=== PATIENT | female | born 1945 | race African-American/Black ===

== ENCOUNTER 2022-02-15 02:48 | Inpatient (IN) | payer MEDICARE, MEDICAID ==
[~2022-02-15] VITALS: Ht 170.2 cm; Wt 135.4 kg
[2022-02-15] VITALS (32 sets, daily range): BP systolic 94–169; BP diastolic 39–131
[2022-02-15] MEDS ORDERED: ALBUTEROL (0.083%) 2.5MG/3ML NEB HHN STA (02:50)
[2022-02-15] MEDS ORDERED: METHYLPREDNISOLONE SOD SUCC 125 MG/2 ML VIAL IV STA (02:50)
[2022-02-15] MEDS ORDERED: IPRATROPIUM BROMIDE (0.02%) 0.5MG/2.5ML NEB HHN STA (02:50)
[2022-02-15] MEDS ORDERED: MAGNESIUM 2 G PREMIX 50 ML IV STA (02:50)
[2022-02-15] MEDS ORDERED: ASPIRIN 81MG TABLET PO ONE (03:00)
[2022-02-15] MEDS ORDERED: ONDANSETRON HCL 4MG/2ML INJ IV ONE (03:00)
[2022-02-15 03:20] LABS: HEMATOCRIT 35.7 % (36.0-48.0); HEMOGLOBIN 11.2 g/dL (12.0-16.0); MEAN CORPUSCULAR HEMOGLOBIN 27.2 pg (28.0-32.0); MEAN CORPUSCULAR VOLUME 86.7 fL (81.0-99.0); PLATELET 423 x1000/uL (130-400); RED BLOOD CELL COUNT 4.11 mill/uL (4.2-5.4); RED CELL DISTRIBUTION WIDTH 17.1 % (11.6-14.6)
[2022-02-15 04:06] LABS: CHLORIDE 104 mEq/L (98-107)
[2022-02-15] MEDS ORDERED: AZITHROMYCIN 500 MG in DEXT 5% WATER 250 ML IV NR (04:15)
[2022-02-15] MEDS ORDERED: CEFTRIAXONE 1 G PREMIX 50 ML IV NR (04:15)
[2022-02-15] MEDS ORDERED: MORPHINE SULFATE 4 MG/ML CPJ (NOT FOR IM USE) IV ONE (05:15)
[2022-02-15] MEDS ORDERED: FUROSEMIDE 100MG/10ML VIAL IVP ONE (05:30)
[2022-02-15] MEDS ORDERED: DOCUSATE SODIUM 100MG CAPSULE PO PRN (07:15)
[2022-02-15] MEDS ORDERED: ONDANSETRON HCL 4MG/2ML INJ IV PRN (07:15)
[2022-02-15] MEDS ORDERED: MAGNESIUM/ALUMINUM HYDROXIDE/SIMETHICONE 30ML UDC PO PRN (07:15)
[2022-02-15] MEDS ORDERED: CLONIDINE 0.1MG TABLET PO PRN (07:15)
[2022-02-15] MEDS ORDERED: TRAMADOL 50MG TABLET PO PRN (07:15)
[2022-02-15] MEDS ORDERED: IPRATROPIUM/ALBUTEROL 0.5-3(2.5)MG/3ML NEB HHN PRN (07:15)
[2022-02-15] MEDS ORDERED: IPRATROPIUM/ALBUTEROL 0.5-3(2.5)MG/3ML NEB HHN SCH (07:15)
[2022-02-15] MEDS: METHYLPREDNISOLONE SOD SUCC 125 MG/2 ML VIAL IV SCH ×3 (07:39→18:15)
[2022-02-15] MEDS: AMLODIPINE 10MG TABLET PO SCH ×2 (07:40→09:00)
[2022-02-15] MEDS ORDERED: VANCOMYCIN 1G PREMIX 200 ML IV SCH (08:00)
[2022-02-15] MEDS: HYDROCODONE/ACETAMINOPHEN 5/325MG TABLET PO PRN (08:11)
[2022-02-15] MEDS: ASPIRIN 81MG EC TABLET PO SCH (09:00)
[2022-02-15] MEDS: ENOXAPARIN 40MG/0.4ML SYR SUBCUT SCH ×2 (09:00→22:23)
[2022-02-15] MEDS ORDERED: PIPERACILLIN/TAZOBACTAM 3.375 G in DEXTROSE 5% WATER 50 ML IV SCH (09:00)
[2022-02-15 09:48] LABS: BG CARBOXYHEMOGLOBIN 0.5 % (0.5-1.5); BG DEOXYHEMOGLOBIN 1.2 % (0.0-5.0); BG FRACTION INSPIRED OXYGEN 50; BG HCO3 ACT 26.6 mmol/L (22.0-26.0); BG METHEMOGLOBIN 0.4 % (0.0-1.5); BG OXYGEN SATURATION 98.8 % (92.0-98.5); BG OXYHEMOGLOBIN 97.9 % (94.0-97.0); BG PCO2 73.9 mmHg (35.0-45.0); BG PH 7.174 (7.350-7.450); BG PO2 146.1 mmHg (75.0-100.0); BG SAMPLE SITE RIGHT RADIAL; BG TOTAL HEMOGLOBIN 11.2 g/dL (12.0-18.0); BG TOTAL RESPIRATORY RATE 18 b/min; BG VENT MODE MASK - BIPAP
[2022-02-15 12:34] LABS: BG BASE EXCESS -1.1 mmol/L (-2.0-2.0); BG CARBOXYHEMOGLOBIN 0.3 % (0.5-1.5); BG DEOXYHEMOGLOBIN 1.7 % (0.0-5.0); BG FRACTION INSPIRED OXYGEN 50; BG HCO3 ACT 27.7 mmol/L (22.0-26.0); BG METHEMOGLOBIN 0.2 % (0.0-1.5); BG OXYGEN SATURATION 98.3 % (92.0-98.5); BG OXYHEMOGLOBIN 97.8 % (94.0-97.0); BG PCO2 68.6 mmHg (35.0-45.0); BG PH 7.224 (7.350-7.450); BG PO2 140.4 mmHg (75.0-100.0); BG SAMPLE SITE RIGHT RADIAL; BG TOTAL HEMOGLOBIN 11.5 g/dL (12.0-18.0); BG TOTAL RESPIRATORY RATE 22 b/min; BG VENT MODE MASK - BIPAP
[2022-02-15 13:36] LABS: T4 FREE 0.87 ng/dL (0.76-1.46)
[2022-02-15] MEDS ORDERED: VANCOMYCIN 1.25GM PMX (XELLIA) 250 ML IV SCH ×2 (14:00)
[2022-02-15] MEDS ORDERED: DEXTROSE 50% WATER 50ML SYRINGE IV PRN (14:30)
[2022-02-15 16:22] LABS: BG BASE EXCESS -2.3 mmol/L (-2.0-2.0); BG CARBOXYHEMOGLOBIN 0.3 % (0.5-1.5); BG DEOXYHEMOGLOBIN 3.1 % (0.0-5.0); BG FRACTION INSPIRED OXYGEN 40; BG HCO3 ACT 25.7 mmol/L (22.0-26.0); BG METHEMOGLOBIN 0.4 % (0.0-1.5); BG OXYGEN SATURATION 96.9 % (92.0-98.5); BG OXYHEMOGLOBIN 96.2 % (94.0-97.0); BG PCO2 60.4 mmHg (35.0-45.0); BG PH 7.247 (7.350-7.450); BG PO2 101.3 mmHg (75.0-100.0); BG SAMPLE SITE RIGHT RADIAL; BG TOTAL HEMOGLOBIN 11.3 g/dL (12.0-18.0); BG TOTAL RESPIRATORY RATE 22 b/min; BG VENT MODE MASK - BIPAP
[2022-02-15] MEDS: BLOOD SUGAR DIAGNOSTIC STRIP TEST SCH ×2 (18:15→22:00)
[2022-02-15] MEDS: INSULIN LISPRO 100 UNITS/ML SUBCUT SCH ×2 (18:24→22:44)
[2022-02-15 19:13] LABS: BG BASE EXCESS -0.1 mmol/L (-2.0-2.0); BG DEOXYHEMOGLOBIN 4.8 % (0.0-5.0); BG FRACTION INSPIRED OXYGEN 40; BG METHEMOGLOBIN 0.3 % (0.0-1.5); BG OXYGEN SATURATION 95.2 % (92.0-98.5); BG OXYHEMOGLOBIN 94.9 % (94.0-97.0); BG PCO2 63.7 mmHg (35.0-45.0); BG PH 7.261 (7.350-7.450); BG SAMPLE SITE RIGHT RADIAL; BG TOTAL HEMOGLOBIN 11.3 g/dL (12.0-18.0); BG TOTAL RESPIRATORY RATE 26 b/min; BG VENT MODE MASK - BIPAP
[2022-02-15 19:24] LABS: CLARITY URINE CLEAR (CLEAR); COLOR URINE YELLOW (YELLOW); KETONES URINE NEGATIVE (NEGATIVE); LEUKOCYTE ESTERASE URINE NEGATIVE (NEGATIVE); NITRITE URINE NEGATIVE (NEGATIVE); OCCULT BLOOD URINE 1+ (NEGATIVE); PH URINE 5.5 (4.5-8.0); PROTEIN URINE TRACE (NEGATIVE); SPECIFIC GRAVITY URINE 1.017 (1.005-1.030)
[2022-02-15 20:24] LABS: *AMPHETAMINES SCREEN URINE NEGATIVE (NEGATIVE); *BARBITURATES SCREEN URINE NEGATIVE (NEGATIVE); *BENZODIAZEPINES SCREEN URINE NEGATIVE (NEGATIVE); *COCAINE SCREEN URINE NEGATIVE (NEGATIVE); CANNABINOID URINE SCREEN NEGATIVE (NEGATIVE); METHADONE URINE SCREEN NEGATIVE (NEGATIVE); OPIATES URINE SCREEN PRESUMTIVE POSITIVE (NEGATIVE); PHENCYCLIDINE URINE SCREEN NEGATIVE (NEGATIVE)
[2022-02-15] MEDS: IPRATROPIUM/ALBUTEROL 0.5-3(2.5)MG/3ML NEB HHN SCH (21:54)
[2022-02-15] MEDS: PIPERACILLIN/TAZOBACTAM 3.375 G in DEXTROSE 5% WATER 50 ML IV SCH (22:40)
[2022-02-15] MEDS: NITROGLYCERIN OINT 1GM/INCH UDPKT TD SCH (22:43)
[2022-02-15] MEDS ORDERED: DOPAMINE 400MG/250ML PREMIX 250 ML IV PRN (23:15)
[2022-02-16] VITALS (57 sets, daily range): BP systolic 83–157; BP diastolic 30–95
[2022-02-16] MEDS: IPRATROPIUM/ALBUTEROL 0.5-3(2.5)MG/3ML NEB HHN SCH ×6 (00:14→20:23)
[2022-02-16] MEDS: METHYLPREDNISOLONE SOD SUCC 125 MG/2 ML VIAL IV SCH ×4 (01:10→19:59)
[2022-02-16 05:41] LABS: HEMATOCRIT. 29.5 % (36.0-48.0); HEMOGLOBIN. 9.7 g/dL (12.0-16.0); MEAN CORPUSCULAR HEMOGLOBIN 27.9 pg (28.0-32.0); MEAN CORPUSCULAR VOLUME 85.2 fL (81.0-99.0); MEAN PLATELET VOLUME 7.1 fl (7.4-10.4); PLATELET 293 x1000/uL (130-400); RED BLOOD CELL COUNT 3.46 mill/uL (4.2-5.4); RED CELL DISTRIBUTION WIDTH 17.2 % (11.6-14.6)
[2022-02-16] MEDS: PIPERACILLIN/TAZOBACTAM 3.375 G in DEXTROSE 5% WATER 50 ML IV SCH ×3 (05:59→21:17)
[2022-02-16] MEDS: NITROGLYCERIN OINT 1GM/INCH UDPKT TD SCH ×3 (05:59→21:16)
[2022-02-16 06:27] LABS: CHLORIDE 105 mEq/L (98-107)
[2022-02-16 07:23] LABS: NUCLEATED RED BLOOD CELLS 1 /100 WBC
[2022-02-16 07:24] LABS: PLATELET ESTIMATE NORMAL
[2022-02-16] MEDS: BLOOD SUGAR DIAGNOSTIC STRIP TEST SCH ×4 (07:50→21:38)
[2022-02-16] MEDS ORDERED: LIDOCAINE HCL 1% 30ML VIAL (10MG/ML) ONE (07:56)
[2022-02-16 08:03] LABS: HDL CHOLESTEROL 53 mg/dL (40-59); LDL CHOLESTEROL 96 mg/dL (5-100)
[2022-02-16] MEDS: INSULIN LISPRO 100 UNITS/ML SUBCUT SCH ×4 (08:20→21:44)
[2022-02-16 09:00] LABS: BG BASE EXCESS 0.3 mmol/L (-2.0-2.0); BG CARBOXYHEMOGLOBIN 0.3 % (0.5-1.5); BG DEOXYHEMOGLOBIN 4.7 % (0.0-5.0); BG FRACTION INSPIRED OXYGEN 44; BG METHEMOGLOBIN 0.3 % (0.0-1.5); BG OXYGEN SATURATION 95.3 % (92.0-98.5); BG OXYHEMOGLOBIN 94.7 % (94.0-97.0); BG PCO2 53.2 mmHg (35.0-45.0); BG PH 7.323 (7.350-7.450); BG PO2 81.2 mmHg (75.0-100.0); BG SAMPLE SITE LEFT RADIAL; BG TOTAL HEMOGLOBIN 10.7 g/dL (12.0-18.0); BG VENT MODE HHN TX
[2022-02-16] MEDS: FERROUS SULFATE 325MG TABLET PO SCH (09:23)
[2022-02-16] MEDS: ENOXAPARIN 40MG/0.4ML SYR SUBCUT SCH ×2 (09:24→21:16)
[2022-02-16] MEDS: ASPIRIN 81MG EC TABLET PO SCH (09:24)
[2022-02-16] MEDS: AMLODIPINE 10MG TABLET PO SCH (09:24)
[2022-02-16 10:55] LABS: INR 1.1; PROTHROMBIN TIME 11.4 sec (9.6-11.0)
[2022-02-16] MEDS ORDERED: VANCOMYCIN 1.25GM PMX (XELLIA) 250 ML IV SCH (11:00)
[2022-02-16 12:23] LABS: CREATINE KINASE MB FRACTION 59.1 ng/mL (0.5-3.6)
[2022-02-16] MEDS: ATORVASTATIN CALCIUM 40MG TABLET PO SCH (21:45)
[2022-02-17] VITALS (81 sets, daily range): BP systolic 103–176; BP diastolic 38–103
[2022-02-17] MEDS: IPRATROPIUM/ALBUTEROL 0.5-3(2.5)MG/3ML NEB HHN SCH ×6 (00:17→19:58)
[2022-02-17] MEDS: METHYLPREDNISOLONE SOD SUCC 125 MG/2 ML VIAL IV SCH ×2 (02:20→06:22)
[2022-02-17 05:57] LABS: HEMATOCRIT. 33.2 % (36.0-48.0); HEMOGLOBIN. 10.9 g/dL (12.0-16.0); MEAN CORPUSCULAR HEMOGLOBIN 27.6 pg (28.0-32.0); MEAN CORPUSCULAR VOLUME 84.1 fL (81.0-99.0); MEAN PLATELET VOLUME 7.2 fl (7.4-10.4); PLATELET 378 x1000/uL (130-400); RED BLOOD CELL COUNT 3.94 mill/uL (4.2-5.4)
[2022-02-17] MEDS: PIPERACILLIN/TAZOBACTAM 3.375 G in DEXTROSE 5% WATER 50 ML IV SCH (06:21)
[2022-02-17] MEDS: NITROGLYCERIN OINT 1GM/INCH UDPKT TD SCH ×3 (06:22→21:09)
[2022-02-17] MEDS: BLOOD SUGAR DIAGNOSTIC STRIP TEST SCH ×4 (07:47→21:10)
[2022-02-17] MEDS: INSULIN LISPRO 100 UNITS/ML SUBCUT SCH ×4 (07:48→21:09)
[2022-02-17 07:58] LABS: BG BASE EXCESS -1.5 mmol/L (-2.0-2.0); BG CARBOXYHEMOGLOBIN 0.3 % (0.5-1.5); BG DEOXYHEMOGLOBIN 5.7 % (0.0-5.0); BG FRACTION INSPIRED OXYGEN 40; BG METHEMOGLOBIN 0.2 % (0.0-1.5); BG OXYGEN SATURATION 94.3 % (92.0-98.5); BG OXYHEMOGLOBIN 93.8 % (94.0-97.0); BG PCO2 38.2 mmHg (35.0-45.0); BG PH 7.398 (7.350-7.450); BG PO2 74.9 mmHg (75.0-100.0); BG SAMPLE SITE LEFT RADIAL; BG TOTAL HEMOGLOBIN 11.2 g/dL (12.0-18.0); BG TOTAL RESPIRATORY RATE 19 b/min; BG VENT MODE MASK - BIPAP
[2022-02-17 08:11] LABS: NUCLEATED RED BLOOD CELLS 1 /100 WBC
[2022-02-17 08:12] LABS: PLATELET ESTIMATE NORMAL
[2022-02-17] MEDS: FERROUS SULFATE 325MG TABLET PO SCH (08:26)
[2022-02-17] MEDS: ENOXAPARIN 40MG/0.4ML SYR SUBCUT SCH (08:26)
[2022-02-17] MEDS: ASPIRIN 81MG EC TABLET PO SCH (08:26)
[2022-02-17] MEDS: FAMOTIDINE 20MG TABLET PO SCH (09:00)
[2022-02-17] MEDS: DOXYCYCLINE HYCLATE 100MG CAPSULE PO SCH ×2 (09:30→17:00)
[2022-02-17] MEDS ORDERED: VANCOMYCIN 1GM PMX (XELLIA) 200 ML IV SCH (11:00)
[2022-02-17] MEDS: SODIUM CHLORIDE 0.9% 1,000 ML IV SCH (11:04)
[2022-02-17] MEDS: CEFEPIME 2,000 MG in DEXT 5% WATER 100 ML IV SCH (11:05)
[2022-02-17] MEDS ORDERED: BENA1TAB19 PO (11:16)
[2022-02-17] MEDS ORDERED: METF-873 PO (11:18)
[2022-02-17] MEDS ORDERED: METF-414 PO (11:18)
[2022-02-17] MEDS ORDERED: NIFE90TA60 PO (11:21)
[2022-02-17] MEDS ORDERED: ATOR40TA70 PO (11:22)
[2022-02-17] MEDS ORDERED: FLUT9.9S BOTHNSTRLS (11:23)
[2022-02-17] MEDS ORDERED: ALBU6.7H3 INH (11:23)
[2022-02-17 11:55] LABS: CHLORIDE 102 mEq/L (98-107)
[2022-02-17 12:03] LABS: CREATINE KINASE 153 IU/L (26-192)
[2022-02-17] MEDS: METHYLPREDNISOLONE SOD SUCC 40 MG/ML VIAL IV SCH ×2 (13:39→21:08)
[2022-02-17] MEDS ORDERED: SUCCINYLCHOLINE CHLORIDE 200MG/10ML IV ONE (16:10)
[2022-02-17] MEDS ORDERED: PROPOFOL 200MG/20ML VIAL IV ONE (16:10)
[2022-02-17] MEDS ORDERED: LIDOCAINE HCL/PF 1% 10 MG/ML 5ML VIAL ONE ×2 (16:13→16:14)
[2022-02-17] MEDS ORDERED: FENTANYL CITRATE/PF 50MCG/ML 2ML VIAL ONE (16:18)
[2022-02-17] MEDS ORDERED: GENTAMICIN/NS IRRIGATION 500 ML IR ONE (16:20)
[2022-02-17] MEDS ORDERED: GENTAMICIN SULF 40MG/ML 2ML VIAL ONE (16:21)
[2022-02-17] MEDS ORDERED: IODIXANOL 320MG/ML 100 ML BOTTLE IV ONE (16:51)
[2022-02-17] MEDS ORDERED: CEFAZOLIN SODIUM 1000MG/VIAL ONE (17:06)
[2022-02-17] MEDS ORDERED: VANCOMYCIN 1GM PMX (XELLIA) 200 ML IV PRN (18:00)
[2022-02-17] MEDS ORDERED: ALBUTEROL 6.7GM HFA INHALER ONE (18:35)
[2022-02-17] MEDS ORDERED: ONDANSETRON HCL 4MG/2ML INJ ONE (18:41)
[2022-02-17] MEDS: HYDROCODONE/ACETAMINOPHEN 5/325MG TABLET PO PRN (19:43)
[2022-02-17] MEDS ORDERED: FUROSEMIDE 100MG/10ML VIAL IVP NR (20:48)
[2022-02-17] MEDS: ATORVASTATIN CALCIUM 40MG TABLET PO SCH (21:09)
[2022-02-18] VITALS (37 sets, daily range): BP systolic 124–164; BP diastolic 58–105
[2022-02-18] MEDS: IPRATROPIUM/ALBUTEROL 0.5-3(2.5)MG/3ML NEB HHN SCH ×7 (00:34→23:28)
[2022-02-18] MEDS: METHYLPREDNISOLONE SOD SUCC 40 MG/ML VIAL IV SCH ×2 (05:11→14:00)
[2022-02-18] MEDS: HYDROCODONE/ACETAMINOPHEN 5/325MG TABLET PO PRN (05:13)
[2022-02-18] MEDS: NITROGLYCERIN OINT 1GM/INCH UDPKT TD SCH ×2 (05:13→14:00)
[2022-02-18] MEDS: SODIUM CHLORIDE 0.9% 1,000 ML IV SCH (05:13)
[2022-02-18 05:32] LABS: HEMATOCRIT. 32.2 % (36.0-48.0); HEMOGLOBIN. 11.1 g/dL (12.0-16.0); MEAN CORPUSCULAR HEMOGLOBIN 28.9 pg (28.0-32.0); MEAN CORPUSCULAR VOLUME 83.5 fL (81.0-99.0); MEAN PLATELET VOLUME 6.7 fl (7.4-10.4); PLATELET 288 x1000/uL (130-400); RED BLOOD CELL COUNT 3.86 mill/uL (4.2-5.4); RED CELL DISTRIBUTION WIDTH 17.4 % (11.6-14.6)
[2022-02-18] MEDS: BLOOD SUGAR DIAGNOSTIC STRIP TEST SCH ×4 (07:50→21:00)
[2022-02-18] MEDS: INSULIN LISPRO 100 UNITS/ML SUBCUT SCH ×4 (08:20→21:00)
[2022-02-18] MEDS ORDERED: VANCOMYCIN 1GM PMX (XELLIA) 200 ML IV SCH (09:00)
[2022-02-18] MEDS: ENOXAPARIN 40MG/0.4ML SYR SUBCUT SCH (10:25)
[2022-02-18] MEDS: DOXYCYCLINE HYCLATE 100MG CAPSULE PO SCH ×2 (10:26→17:58)
[2022-02-18] MEDS: FAMOTIDINE 20MG TABLET PO SCH (10:26)
[2022-02-18] MEDS: ASPIRIN 81MG EC TABLET PO SCH (10:26)
[2022-02-18] MEDS: FERROUS SULFATE 325MG TABLET PO SCH (10:26)
[2022-02-18] MEDS: CEFEPIME 2,000 MG in DEXT 5% WATER 100 ML IV SCH (10:35)
[2022-02-18 13:15] LABS: NUCLEATED RED BLOOD CELLS 2 /100 WBC
[2022-02-18 13:16] LABS: PLATELET ESTIMATE NORMAL
[2022-02-19] VITALS (35 sets, daily range): BP systolic 125–166; BP diastolic 60–93
[2022-02-19] MEDS: METHYLPREDNISOLONE SOD SUCC 40 MG/ML VIAL IV SCH ×4 (00:49→22:00)
[2022-02-19] MEDS: ATORVASTATIN CALCIUM 40MG TABLET PO SCH ×2 (00:52→22:00)
[2022-02-19] MEDS: NITROGLYCERIN OINT 1GM/INCH UDPKT TD SCH ×4 (00:52→22:00)
[2022-02-19] MEDS: SODIUM CHLORIDE 0.9% 1,000 ML IV SCH (01:45)
[2022-02-19] MEDS: IPRATROPIUM/ALBUTEROL 0.5-3(2.5)MG/3ML NEB HHN SCH ×5 (03:25→20:27)
[2022-02-19 05:32] LABS: HEMATOCRIT. 28.9 % (36.0-48.0); HEMOGLOBIN. 9.4 g/dL (12.0-16.0); MEAN CORPUSCULAR HEMOGLOBIN 27.4 pg (28.0-32.0); MEAN CORPUSCULAR VOLUME 84.5 fL (81.0-99.0); MEAN PLATELET VOLUME 7.1 fl (7.4-10.4); PLATELET 230 x1000/uL (130-400); RED BLOOD CELL COUNT 3.42 mill/uL (4.2-5.4); RED CELL DISTRIBUTION WIDTH 17.5 % (11.6-14.6)
[2022-02-19 05:48] LABS: PHOSPHORUS 3.2 mg/dL (2.5-4.9)
[2022-02-19] MEDS: HYDROCODONE/ACETAMINOPHEN 5/325MG TABLET PO PRN (07:07)
[2022-02-19] MEDS: BLOOD SUGAR DIAGNOSTIC STRIP TEST SCH ×4 (07:50→21:53)
[2022-02-19 08:05] LABS: PLATELET ESTIMATE NORMAL
[2022-02-19] MEDS: FERROUS SULFATE 325MG TABLET PO SCH (09:00)
[2022-02-19] MEDS: ASPIRIN 81MG EC TABLET PO SCH (09:00)
[2022-02-19] MEDS: FAMOTIDINE 20MG TABLET PO SCH (09:00)
[2022-02-19] MEDS: DOXYCYCLINE HYCLATE 100MG CAPSULE PO SCH ×2 (09:00→17:44)
[2022-02-19] MEDS: ENOXAPARIN 40MG/0.4ML SYR SUBCUT SCH (09:00)
[2022-02-19 09:22] LABS: BG BASE EXCESS 1.3 mmol/L (-2.0-2.0); BG CARBOXYHEMOGLOBIN 0.3 % (0.5-1.5); BG DEOXYHEMOGLOBIN 4.8 % (0.0-5.0); BG FRACTION INSPIRED OXYGEN 32; BG HCO3 ACT 26.6 mmol/L (22.0-26.0); BG METHEMOGLOBIN 0.3 % (0.0-1.5); BG OXYGEN SATURATION 95.2 % (92.0-98.5); BG OXYHEMOGLOBIN 94.6 % (94.0-97.0); BG PCO2 45.3 mmHg (35.0-45.0); BG PH 7.387 (7.350-7.450); BG PO2 78.8 mmHg (75.0-100.0); BG SAMPLE SITE RIGHT RADIAL; BG TOTAL HEMOGLOBIN 10.5 g/dL (12.0-18.0); BG VENT MODE NASAL CANNULA
[2022-02-19] MEDS: INSULIN LISPRO 100 UNITS/ML SUBCUT SCH ×4 (09:26→22:18)
[2022-02-19] MEDS: CEFEPIME 2,000 MG in DEXT 5% WATER 100 ML IV SCH (13:51)
[2022-02-19] MEDS ORDERED: NALOXONE HCL 0.4MG/ML VIAL IV PRN (14:30)
[2022-02-19] MEDS ORDERED: VANCOMYCIN 1GM PMX (XELLIA) 200 ML IV SCH (21:00)
[2022-02-19] MEDS: GUAIFENESIN 200MG/10ML SUGAR FREE UDC PO PRN (22:00)
[2022-02-20] VITALS (31 sets, daily range): BP systolic 135–165; BP diastolic 62–93
[2022-02-20] MEDS: IPRATROPIUM/ALBUTEROL 0.5-3(2.5)MG/3ML NEB HHN SCH ×6 (00:09→20:08)
[2022-02-20 04:52] LABS: HEMOGLOBIN. 9.1 g/dL (12.0-16.0); MEAN CORPUSCULAR HEMOGLOBIN 27.3 pg (28.0-32.0); MEAN PLATELET VOLUME 7.1 fl (7.4-10.4); PLATELET 196 x1000/uL (130-400); RED BLOOD CELL COUNT 3.33 mill/uL (4.2-5.4); RED CELL DISTRIBUTION WIDTH 17.3 % (11.6-14.6)
[2022-02-20] MEDS: METHYLPREDNISOLONE SOD SUCC 40 MG/ML VIAL IV SCH ×3 (05:08→21:20)
[2022-02-20] MEDS: NITROGLYCERIN OINT 1GM/INCH UDPKT TD SCH ×3 (05:08→21:21)
[2022-02-20 07:00] LABS: PLATELET ESTIMATE NORMAL
[2022-02-20] MEDS: BLOOD SUGAR DIAGNOSTIC STRIP TEST SCH ×4 (08:00→21:09)
[2022-02-20 08:49] LABS: BG BASE EXCESS 1.7 mmol/L (-2.0-2.0); BG CARBOXYHEMOGLOBIN 0.3 % (0.5-1.5); BG DEOXYHEMOGLOBIN 3.9 % (0.0-5.0); BG FRACTION INSPIRED OXYGEN 32; BG HCO3 ACT 26.9 mmol/L (22.0-26.0); BG METHEMOGLOBIN 0.6 % (0.0-1.5); BG OXYGEN SATURATION 96.1 % (92.0-98.5); BG OXYHEMOGLOBIN 95.2 % (94.0-97.0); BG PCO2 44.6 mmHg (35.0-45.0); BG PH 7.398 (7.350-7.450); BG PO2 89.4 mmHg (75.0-100.0); BG SAMPLE SITE RIGHT RADIAL; BG TOTAL HEMOGLOBIN 10.8 g/dL (12.0-18.0); BG VENT MODE NASAL CANNULA
[2022-02-20] MEDS: ASPIRIN 81MG EC TABLET PO SCH (09:00)
[2022-02-20] MEDS ORDERED: VANCOMYCIN 1GM PMX (XELLIA) 200 ML IV SCH (09:00)
[2022-02-20] MEDS: DOXYCYCLINE HYCLATE 100MG CAPSULE PO SCH ×2 (09:00→17:42)
[2022-02-20] MEDS: FERROUS SULFATE 325MG TABLET PO SCH (10:10)
[2022-02-20] MEDS: FAMOTIDINE 20MG TABLET PO SCH (10:11)
[2022-02-20] MEDS: ENOXAPARIN 40MG/0.4ML SYR SUBCUT SCH (10:12)
[2022-02-20] MEDS: INSULIN LISPRO 100 UNITS/ML SUBCUT SCH ×4 (10:18→21:30)
[2022-02-20] MEDS: CEFEPIME 2,000 MG in DEXT 5% WATER 100 ML IV SCH (12:48)
[2022-02-20] MEDS ORDERED: BISACODYL 10MG SUPP PR NR (15:45)
[2022-02-20] MEDS: ATORVASTATIN CALCIUM 40MG TABLET PO SCH (21:20)
[2022-02-20] MEDS: GUAIFENESIN 200MG/10ML SUGAR FREE UDC PO PRN (21:20)
[2022-02-21] VITALS (58 sets, daily range): BP systolic 119–193; BP diastolic 31–136
[2022-02-21] MEDS: IPRATROPIUM/ALBUTEROL 0.5-3(2.5)MG/3ML NEB HHN SCH ×6 (00:06→20:35)
[2022-02-21] MEDS: NITROGLYCERIN OINT 1GM/INCH UDPKT TD SCH ×3 (06:09→22:29)
[2022-02-21] MEDS: BLOOD SUGAR DIAGNOSTIC STRIP TEST SCH ×4 (07:57→21:00)
[2022-02-21 08:21] LABS: BG BASE EXCESS 1.9 mmol/L (-2.0-2.0); BG CARBOXYHEMOGLOBIN 0.5 % (0.5-1.5); BG DEOXYHEMOGLOBIN 8.8 % (0.0-5.0); BG FRACTION INSPIRED OXYGEN 40; BG HCO3 ACT 26.3 mmol/L (22.0-26.0); BG METHEMOGLOBIN 0.1 % (0.0-1.5); BG OXYGEN SATURATION 91.1 % (92.0-98.5); BG OXYHEMOGLOBIN 90.6 % (94.0-97.0); BG PCO2 40.6 mmHg (35.0-45.0); BG PO2 61.2 mmHg (75.0-100.0); BG SAMPLE SITE LEFT RADIAL; BG TOTAL HEMOGLOBIN 12.6 g/dL (12.0-18.0); BG TOTAL RESPIRATORY RATE 21 b/min; BG VENT MODE MASK - BIPAP
[2022-02-21] MEDS: METHYLPREDNISOLONE SOD SUCC 40 MG/ML VIAL IV SCH ×2 (08:31→22:11)
[2022-02-21] MEDS: ENOXAPARIN 40MG/0.4ML SYR SUBCUT SCH (08:31)
[2022-02-21] MEDS: FERROUS SULFATE 325MG TABLET PO SCH (08:32)
[2022-02-21] MEDS: FAMOTIDINE 20MG TABLET PO SCH (08:32)
[2022-02-21] MEDS: ASPIRIN 81MG EC TABLET PO SCH (08:32)
[2022-02-21] MEDS: INSULIN LISPRO 100 UNITS/ML SUBCUT SCH ×4 (08:33→22:10)
[2022-02-21 08:45] LABS: HEMATOCRIT. 33.7 % (36.0-48.0); HEMOGLOBIN. 10.7 g/dL (12.0-16.0); MEAN CORPUSCULAR HEMOGLOBIN 26.9 pg (28.0-32.0); MEAN CORPUSCULAR VOLUME 84.8 fL (81.0-99.0); MEAN PLATELET VOLUME 7.8 fl (7.4-10.4); PLATELET 263 x1000/uL (130-400); RED BLOOD CELL COUNT 3.97 mill/uL (4.2-5.4); RED CELL DISTRIBUTION WIDTH 17.2 % (11.6-14.6)
[2022-02-21] MEDS: DOXYCYCLINE HYCLATE 100MG CAPSULE PO SCH ×2 (09:00→17:50)
[2022-02-21] MEDS: AMLODIPINE 10MG TABLET PO SCH (09:15)
[2022-02-21] MEDS ORDERED: HYDRALAZINE 20MG/ML VIAL IV NR ×2 (09:15→12:30)
[2022-02-21 09:27] LABS: PLATELET ESTIMATE NORMAL
[2022-02-21] MEDS ORDERED: HYDRALAZINE 20MG/ML VIAL IV PRN (09:30)
[2022-02-21] MEDS ORDERED: FUROSEMIDE 40MG/4ML VIAL IVP NR ×2 (10:15→17:00)
[2022-02-21] MEDS: CEFEPIME 2,000 MG in DEXT 5% WATER 100 ML IV SCH (11:10)
[2022-02-21 15:17] LABS: BG BASE EXCESS 4.4 mmol/L (-2.0-2.0); BG CARBOXYHEMOGLOBIN 0.4 % (0.5-1.5); BG HCO3 ACT 27.1 mmol/L (22.0-26.0); BG METHEMOGLOBIN 0.3 % (0.0-1.5); BG OXYHEMOGLOBIN 97.3 % (94.0-97.0); BG PCO2 33.9 mmHg (35.0-45.0); BG PO2 104.3 mmHg (75.0-100.0); BG SAMPLE SITE RIGHT RADIAL; BG TOTAL HEMOGLOBIN 12.5 g/dL (12.0-18.0); BG VENT MODE MASK - BIPAP
[2022-02-21] MEDS: FAMOTIDINE 20MG/2ML VIAL IV SCH (22:11)
[2022-02-21] MEDS: ATORVASTATIN CALCIUM 40MG TABLET PO SCH (22:11)
[2022-02-22] VITALS (22 sets, daily range): BP systolic 128–178; BP diastolic 73–113
[2022-02-22] MEDS: IPRATROPIUM/ALBUTEROL 0.5-3(2.5)MG/3ML NEB HHN SCH ×6 (00:28→20:45)
[2022-02-22] MEDS: BLOOD SUGAR DIAGNOSTIC STRIP TEST SCH ×4 (06:33→21:31)
[2022-02-22] MEDS: INSULIN LISPRO 100 UNITS/ML SUBCUT SCH ×4 (06:38→21:36)
[2022-02-22] MEDS: NITROGLYCERIN OINT 1GM/INCH UDPKT TD SCH ×3 (06:40→22:15)
[2022-02-22 08:42] LABS: BG BASE EXCESS 6.7 mmol/L (-2.0-2.0); BG CARBOXYHEMOGLOBIN 0.3 % (0.5-1.5); BG DEOXYHEMOGLOBIN 1.3 % (0.0-5.0); BG FRACTION INSPIRED OXYGEN 40; BG HCO3 ACT 31.5 mmol/L (22.0-26.0); BG METHEMOGLOBIN 0.3 % (0.0-1.5); BG OXYGEN SATURATION 98.7 % (92.0-98.5); BG OXYHEMOGLOBIN 98.1 % (94.0-97.0); BG PCO2 46.1 mmHg (35.0-45.0); BG PH 7.453 (7.350-7.450); BG PO2 138.3 mmHg (75.0-100.0); BG SAMPLE SITE RIGHT RADIAL; BG TOTAL HEMOGLOBIN 11.1 g/dL (12.0-18.0); BG TOTAL RESPIRATORY RATE 20 b/min; BG VENT MODE MASK - BIPAP
[2022-02-22] MEDS: METHYLPREDNISOLONE SOD SUCC 40 MG/ML VIAL IV SCH ×2 (09:04→21:25)
[2022-02-22] MEDS: FUROSEMIDE 40MG/4ML VIAL IVP SCH (09:04)
[2022-02-22] MEDS: FERROUS SULFATE 325MG TABLET PO SCH (09:05)
[2022-02-22] MEDS: AMLODIPINE 10MG TABLET PO SCH (09:05)
[2022-02-22] MEDS: DOXYCYCLINE HYCLATE 100MG CAPSULE PO SCH ×2 (09:05→18:34)
[2022-02-22] MEDS: ENOXAPARIN 40MG/0.4ML SYR SUBCUT SCH (09:05)
[2022-02-22] MEDS: ASPIRIN 81MG EC TABLET PO SCH (09:05)
[2022-02-22 12:52] LABS: HEMATOCRIT 34.8 % (36.0-48.0); HEMOGLOBIN 11.1 g/dL (12.0-16.0); MEAN CORPUSCULAR HEMOGLOBIN 26.7 pg (28.0-32.0); PLATELET 222 x1000/uL (130-400); RED BLOOD CELL COUNT 4.14 mill/uL (4.2-5.4); RED CELL DISTRIBUTION WIDTH 17.9 % (11.6-14.6)
[2022-02-22] MEDS: CEFEPIME 2,000 MG in DEXT 5% WATER 100 ML IV SCH (15:13)
[2022-02-22] MEDS: ACETYLCYSTEINE 100MG/ML 10% VIAL 4ML INH SCH ×2 (16:15→20:45)
[2022-02-22] MEDS: ATORVASTATIN CALCIUM 40MG TABLET PO SCH (21:25)
[2022-02-22] MEDS: FAMOTIDINE 20MG/2ML VIAL IV SCH (21:25)
[2022-02-23] VITALS (7 sets, daily range): BP systolic 101–130; BP diastolic 60–76
[2022-02-23] MEDS: IPRATROPIUM/ALBUTEROL 0.5-3(2.5)MG/3ML NEB HHN SCH ×6 (00:30→22:33)
[2022-02-23] MEDS: NITROGLYCERIN OINT 1GM/INCH UDPKT TD SCH ×3 (06:00→20:48)
[2022-02-23] MEDS: BLOOD SUGAR DIAGNOSTIC STRIP TEST SCH ×4 (07:02→21:00)
[2022-02-23 08:20] LABS: HEMATOCRIT. 29.3 % (36.0-48.0); HEMOGLOBIN. 9.6 g/dL (12.0-16.0); MEAN CORPUSCULAR HEMOGLOBIN 27.6 pg (28.0-32.0); MEAN CORPUSCULAR VOLUME 84.1 fL (81.0-99.0); MEAN PLATELET VOLUME 7.6 fl (7.4-10.4); PLATELET 183 x1000/uL (130-400); RED BLOOD CELL COUNT 3.49 mill/uL (4.2-5.4); RED CELL DISTRIBUTION WIDTH 18.2 % (11.6-14.6)
[2022-02-23] MEDS: METHYLPREDNISOLONE SOD SUCC 40 MG/ML VIAL IV SCH ×2 (10:00→20:47)
[2022-02-23] MEDS: FUROSEMIDE 40MG/4ML VIAL IVP SCH (10:00)
[2022-02-23] MEDS: ENOXAPARIN 40MG/0.4ML SYR SUBCUT SCH (10:00)
[2022-02-23] MEDS: FERROUS SULFATE 325MG TABLET PO SCH (10:00)
[2022-02-23] MEDS: AMLODIPINE 10MG TABLET PO SCH (10:00)
[2022-02-23] MEDS: DOXYCYCLINE HYCLATE 100MG CAPSULE PO SCH ×2 (10:01→17:50)
[2022-02-23] MEDS: ASPIRIN 81MG EC TABLET PO SCH (10:01)
[2022-02-23] MEDS: INSULIN LISPRO 100 UNITS/ML SUBCUT SCH ×4 (10:05→21:14)
[2022-02-23 12:15] LABS: PLATELET ESTIMATE NORMAL
[2022-02-23] MEDS: CEFEPIME 2,000 MG in DEXT 5% WATER 100 ML IV SCH (13:36)
[2022-02-23] MEDS: ACETYLCYSTEINE 100MG/ML 10% VIAL 4ML INH SCH (14:00)
[2022-02-23] MEDS: ATORVASTATIN CALCIUM 40MG TABLET PO SCH (20:47)
[2022-02-23] MEDS: FAMOTIDINE 20MG TABLET PO SCH (20:48)
[2022-02-23] MEDS: ACETAMINOPHEN 325MG TABLET PO PRN (21:01)
[2022-02-24] VITALS (7 sets, daily range): BP systolic 101–126; BP diastolic 60–80
[2022-02-24] MEDS: ACETYLCYSTEINE 200MG/ML 20% VIAL 4ML INH SCH ×4 (00:37→14:38)
[2022-02-24] MEDS: IPRATROPIUM/ALBUTEROL 0.5-3(2.5)MG/3ML NEB HHN SCH ×6 (00:38→20:35)
[2022-02-24] MEDS: NITROGLYCERIN OINT 1GM/INCH UDPKT TD SCH (05:54)
[2022-02-24] MEDS: BLOOD SUGAR DIAGNOSTIC STRIP TEST SCH ×4 (07:03→21:12)
[2022-02-24] MEDS: AMLODIPINE 10MG TABLET PO SCH (08:44)
[2022-02-24] MEDS: METHYLPREDNISOLONE SOD SUCC 40 MG/ML VIAL IV SCH (09:00)
[2022-02-24] MEDS: FUROSEMIDE 40MG/4ML VIAL IVP SCH (09:00)
[2022-02-24] MEDS: DOXYCYCLINE HYCLATE 100MG CAPSULE PO SCH ×2 (09:01→18:25)
[2022-02-24] MEDS: ENOXAPARIN 40MG/0.4ML SYR SUBCUT SCH (09:01)
[2022-02-24] MEDS: ASPIRIN 81MG EC TABLET PO SCH (09:01)
[2022-02-24] MEDS: FERROUS SULFATE 325MG TABLET PO SCH (09:01)
[2022-02-24] MEDS: INSULIN LISPRO 100 UNITS/ML SUBCUT SCH ×4 (09:02→21:12)
[2022-02-24] MEDS: CEFEPIME 2,000 MG in DEXT 5% WATER 100 ML IV SCH (11:08)
[2022-02-24 13:30] LABS: HEMATOCRIT 28.7 % (36.0-48.0); HEMOGLOBIN 9.4 g/dL (12.0-16.0); MEAN CORPUSCULAR HEMOGLOBIN 27.9 pg (28.0-32.0); MEAN CORPUSCULAR VOLUME 84.7 fL (81.0-99.0); PLATELET 171 x1000/uL (130-400); RED BLOOD CELL COUNT 3.39 mill/uL (4.2-5.4); RED CELL DISTRIBUTION WIDTH 18.4 % (11.6-14.6)
[2022-02-24 13:59] LABS: CHLORIDE 105 mEq/L (98-107)
[2022-02-24] MEDS: ATORVASTATIN CALCIUM 40MG TABLET PO SCH (21:10)
[2022-02-24] MEDS: FAMOTIDINE 20MG TABLET PO SCH (21:10)
[2022-02-25] VITALS: BP 142/75
[2022-02-25] MEDS: IPRATROPIUM/ALBUTEROL 0.5-3(2.5)MG/3ML NEB HHN SCH ×6 (00:31→20:56)
[2022-02-25 04:00] VITALS: BP 138/75
[2022-02-25] MEDS: BLOOD SUGAR DIAGNOSTIC STRIP TEST SCH ×4 (05:40→20:25)
[2022-02-25] MEDS: INSULIN LISPRO 100 UNITS/ML SUBCUT SCH ×4 (07:50→20:24)
[2022-02-25 08:00] VITALS: BP 127/72
[2022-02-25] MEDS ORDERED: METHYLPREDNISOLONE SOD SUCC 40 MG/ML VIAL IV SCH (09:00)
[2022-02-25] MEDS: ACETYLCYSTEINE 200MG/ML 20% VIAL 4ML INH SCH ×2 (09:14→16:31)
[2022-02-25] MEDS: ASPIRIN 81MG EC TABLET PO SCH (10:03)
[2022-02-25] MEDS: AMLODIPINE 10MG TABLET PO SCH (10:04)
[2022-02-25] MEDS: FUROSEMIDE 40MG/4ML VIAL IVP SCH (10:04)
[2022-02-25] MEDS: ENOXAPARIN 40MG/0.4ML SYR SUBCUT SCH (10:04)
[2022-02-25] MEDS: FERROUS SULFATE 325MG TABLET PO SCH (10:04)
[2022-02-25 12:00] VITALS: BP 146/64
[2022-02-25 12:09] LABS: HEMATOCRIT 32.5 % (36.0-48.0); HEMOGLOBIN 10.2 g/dL (12.0-16.0); MEAN CORPUSCULAR HEMOGLOBIN 27.1 pg (28.0-32.0); MEAN CORPUSCULAR VOLUME 86.5 fL (81.0-99.0); PLATELET 181 x1000/uL (130-400); RED BLOOD CELL COUNT 3.76 mill/uL (4.2-5.4); RED CELL DISTRIBUTION WIDTH 18.4 % (11.6-14.6)
[2022-02-25 12:30] LABS: CHLORIDE 102 mEq/L (98-107)
[2022-02-25 16:00] VITALS: BP 130/64
[2022-02-25] MEDS ORDERED: FUROSEMIDE 40MG/4ML VIAL IVP NR (16:45)
[2022-02-25] MEDS: LIDOCAINE 5% PATCH TOP SCH (19:02)
[2022-02-25 20:00] VITALS: BP 157/69
[2022-02-25] MEDS: FAMOTIDINE 20MG TABLET PO SCH (20:16)
[2022-02-25] MEDS: ATORVASTATIN CALCIUM 40MG TABLET PO SCH (20:16)
[2022-02-25] MEDS: ACETAMINOPHEN 325MG TABLET PO PRN (22:25)
[2022-02-26] VITALS: BP 154/62
[2022-02-26] MEDS: ACETYLCYSTEINE 200MG/ML 20% VIAL 4ML INH SCH ×2 (00:22→16:05)
[2022-02-26] MEDS: IPRATROPIUM/ALBUTEROL 0.5-3(2.5)MG/3ML NEB HHN SCH ×6 (00:26→19:59)
[2022-02-26 04:00] VITALS: BP 138/68
[2022-02-26 05:54] LABS: BASOPHILS % 0.1 % (0.0-2.0); EOSINOPHILS % 0.7 % (0.0-5.0); HEMATOCRIT. 28.8 % (36.0-48.0); HEMOGLOBIN. 9.5 g/dL (12.0-16.0); LYMPHOCYTES % 10.7 % (20.0-50.0); MEAN CORPUSCULAR HEMOGLOBIN 28.2 pg (28.0-32.0); MEAN CORPUSCULAR VOLUME 85.4 fL (81.0-99.0); MEAN PLATELET VOLUME 8.2 fl (7.4-10.4); MONOCYTES % 10.1 % (2.0-8.0); NEUTROPHILS % 78.4 % (40.0-76.0); PLATELET 164 x1000/uL (130-400); RED BLOOD CELL COUNT 3.37 mill/uL (4.2-5.4); RED CELL DISTRIBUTION WIDTH 18.7 % (11.6-14.6)
[2022-02-26] MEDS: BLOOD SUGAR DIAGNOSTIC STRIP TEST SCH ×4 (07:20→21:25)
[2022-02-26 08:00] VITALS: BP 130/62
[2022-02-26] MEDS: PREDNISONE 20MG TABLET PO SCH (08:59)
[2022-02-26] MEDS: ASPIRIN 81MG EC TABLET PO SCH (08:59)
[2022-02-26] MEDS: ENOXAPARIN 40MG/0.4ML SYR SUBCUT SCH (09:00)
[2022-02-26] MEDS ORDERED: PREDNISONE 20MG TABLET PO SCH (09:00)
[2022-02-26] MEDS: FUROSEMIDE 40MG/4ML VIAL IVP SCH ×2 (09:00→17:46)
[2022-02-26] MEDS: AMLODIPINE 10MG TABLET PO SCH (09:00)
[2022-02-26] MEDS: LIDOCAINE 5% PATCH TOP SCH (09:01)
[2022-02-26] MEDS: INSULIN LISPRO 100 UNITS/ML SUBCUT SCH ×4 (09:18→21:44)
[2022-02-26 12:00] VITALS: BP 146/69
[2022-02-26 16:00] VITALS: BP 123/65
[2022-02-26] MEDS: ACETAMINOPHEN 325MG TABLET PO PRN (17:46)
[2022-02-26 20:00] VITALS: BP 149/61
[2022-02-26] MEDS: FAMOTIDINE 20MG TABLET PO SCH (21:18)
[2022-02-26] MEDS: ATORVASTATIN CALCIUM 40MG TABLET PO SCH (21:18)
[2022-02-27] VITALS: BP 103/67
[2022-02-27] MEDS: IPRATROPIUM/ALBUTEROL 0.5-3(2.5)MG/3ML NEB HHN SCH ×6 (01:13→21:23)
[2022-02-27] MEDS: ACETYLCYSTEINE 200MG/ML 20% VIAL 4ML INH SCH ×2 (01:13→07:45)
[2022-02-27 04:00] VITALS: BP 152/80
[2022-02-27 05:22] LABS: EOSINOPHILS % 1.6 % (0.0-5.0); HEMATOCRIT. 28.6 % (36.0-48.0); HEMOGLOBIN. 9.4 g/dL (12.0-16.0); LYMPHOCYTES % 14.7 % (20.0-50.0); MEAN CORPUSCULAR HEMOGLOBIN 28.1 pg (28.0-32.0); MEAN CORPUSCULAR VOLUME 85.6 fL (81.0-99.0); NEUTROPHILS % 72.7 % (40.0-76.0); PLATELET 178 x1000/uL (130-400); RED BLOOD CELL COUNT 3.34 mill/uL (4.2-5.4); RED CELL DISTRIBUTION WIDTH 18.8 % (11.6-14.6)
[2022-02-27 06:14] LABS: CHLORIDE 103 mEq/L (98-107)
[2022-02-27] MEDS: BLOOD SUGAR DIAGNOSTIC STRIP TEST SCH ×4 (06:30→21:13)
[2022-02-27] MEDS: INSULIN LISPRO 100 UNITS/ML SUBCUT SCH ×4 (07:50→21:26)
[2022-02-27 08:10] VITALS: BP 140/74
[2022-02-27] MEDS: AMLODIPINE 10MG TABLET PO SCH (09:45)
[2022-02-27] MEDS: PREDNISONE 20MG TABLET PO SCH (09:45)
[2022-02-27] MEDS: FUROSEMIDE 40MG/4ML VIAL IVP SCH ×2 (09:45→17:44)
[2022-02-27] MEDS: LIDOCAINE 5% PATCH TOP SCH (09:46)
[2022-02-27] MEDS: ENOXAPARIN 40MG/0.4ML SYR SUBCUT SCH (09:46)
[2022-02-27 12:00] VITALS: BP 143/69
[2022-02-27 15:56] VITALS: BP 142/70
[2022-02-27 18:03] LABS: BG BASE EXCESS 6.5 mmol/L (-2.0-2.0); BG CARBOXYHEMOGLOBIN 0.3 % (0.5-1.5); BG DEOXYHEMOGLOBIN 10.5 % (0.0-5.0); BG FRACTION INSPIRED OXYGEN 21; BG HCO3 ACT 30.4 mmol/L (22.0-26.0); BG METHEMOGLOBIN 0.1 % (0.0-1.5); BG OXYGEN SATURATION 89.5 % (92.0-98.5); BG OXYHEMOGLOBIN 89.1 % (94.0-97.0); BG PCO2 40.6 mmHg (35.0-45.0); BG PH 7.492 (7.350-7.450); BG PO2 54.8 mmHg (75.0-100.0); BG SAMPLE SITE LEFT RADIAL; BG TOTAL HEMOGLOBIN 10.9 g/dL (12.0-18.0); BG VENT MODE ROOM AIR
[2022-02-27 20:00] VITALS: BP 138/74
[2022-02-27] MEDS: ATORVASTATIN CALCIUM 40MG TABLET PO SCH (21:27)
[2022-02-27] MEDS: FAMOTIDINE 20MG TABLET PO SCH (21:27)
[2022-02-27] MEDS: ENOXAPARIN 30MG/0.3ML SYR SUBCUT SCH (21:28)
[2022-02-28] VITALS: BP 143/83
[2022-02-28] MEDS: ACETYLCYSTEINE 200MG/ML 20% VIAL 4ML INH SCH ×2 (00:26→08:54)
[2022-02-28] MEDS: IPRATROPIUM/ALBUTEROL 0.5-3(2.5)MG/3ML NEB HHN SCH ×6 (00:26→21:00)
[2022-02-28 04:00] VITALS: BP 144/76
[2022-02-28] MEDS: BLOOD SUGAR DIAGNOSTIC STRIP TEST SCH ×4 (06:23→21:40)
[2022-02-28] MEDS: INSULIN LISPRO 100 UNITS/ML SUBCUT SCH ×4 (07:34→21:44)
[2022-02-28 08:00] VITALS: BP 141/68
[2022-02-28] MEDS: FUROSEMIDE 40MG/4ML VIAL IVP SCH ×2 (08:12→16:47)
[2022-02-28] MEDS: LIDOCAINE 5% PATCH TOP SCH (08:12)
[2022-02-28] MEDS: ENOXAPARIN 30MG/0.3ML SYR SUBCUT SCH ×2 (08:13→21:41)
[2022-02-28] MEDS: AMLODIPINE 10MG TABLET PO SCH (08:13)
[2022-02-28] MEDS ORDERED: PREDNISONE 10MG TABLET PO SCH (09:00)
[2022-02-28 09:45] LABS: BASOPHILS % 0.1 % (0.0-2.0); EOSINOPHILS % 2.2 % (0.0-5.0); HEMATOCRIT. 28.7 % (36.0-48.0); HEMOGLOBIN. 9.3 g/dL (12.0-16.0); LYMPHOCYTES % 16.6 % (20.0-50.0); MEAN CORPUSCULAR HEMOGLOBIN 27.7 pg (28.0-32.0); MEAN CORPUSCULAR VOLUME 85.6 fL (81.0-99.0); MEAN PLATELET VOLUME 8.3 fl (7.4-10.4); MONOCYTES % 9.8 % (2.0-8.0); NEUTROPHILS % 71.3 % (40.0-76.0); PLATELET 182 x1000/uL (130-400); RED BLOOD CELL COUNT 3.36 mill/uL (4.2-5.4)
[2022-02-28 10:13] LABS: CHLORIDE 102 mEq/L (98-107)
[2022-02-28 12:00] VITALS: BP 120/60
[2022-02-28 16:00] VITALS: BP 131/64
[2022-02-28 20:00] VITALS: BP 132/67
[2022-02-28] MEDS: ATORVASTATIN CALCIUM 40MG TABLET PO SCH (21:41)
[2022-02-28] MEDS: FAMOTIDINE 20MG TABLET PO SCH (21:41)
[2022-03-01] VITALS: BP 148/70
[2022-03-01] MEDS: IPRATROPIUM/ALBUTEROL 0.5-3(2.5)MG/3ML NEB HHN SCH ×3 (01:01→09:19)
[2022-03-01] MEDS: ACETYLCYSTEINE 200MG/ML 20% VIAL 4ML INH SCH ×2 (01:01→09:19)
[2022-03-01 04:00] VITALS: BP 144/72
[2022-03-01] MEDS: BLOOD SUGAR DIAGNOSTIC STRIP TEST SCH (07:30)
[2022-03-01 08:00] VITALS: BP 158/80
[2022-03-01 09:23] VITALS: BP 158/80
[2022-03-01] MEDS: FUROSEMIDE 40MG/4ML VIAL IVP SCH (10:38)
[2022-03-01] MEDS: AMLODIPINE 10MG TABLET PO SCH (10:39)
[2022-03-01 10:43] VITALS: BP 158/80
[2022-03-01] MEDS: LIDOCAINE 5% PATCH TOP SCH (10:43)
[2022-03-01] MEDS: ENOXAPARIN 30MG/0.3ML SYR SUBCUT SCH (10:43)
[2022-03-01] MEDS: INSULIN LISPRO 100 UNITS/ML SUBCUT SCH (10:58)
[2022-03-01] MEDS ORDERED: MENTHOL/LANOLIN/CALAMINE/ZN OX OINT 71GM TOP SCH (13:00)
== END 2022-03-01 18:17 | disposition home or self-care (01) | DRG 853 ==
LOC: ER 02:48 → 5EST 05:28 → EDBEDREQ 05:31 → EDBEDREQTM 05:31 → ENRESERV 10:06 → CVICU 15:40 → 6WST 02-22 12:03
PROVIDERS: ADMIT Hospitalist; ATTEND Hospitalist
PROC: 5A09357 Assistance with Respiratory Ventilation, Less than 24 Consecutive Hours, Continuous Positive Airway Pressure (ICD-10-PCS; 2022-02-15)
PROC: 5A09357 Assistance with Respiratory Ventilation, Less than 24 Consecutive Hours, Continuous Positive Airway Pressure (ICD-10-PCS; 2022-02-15)
PROC: 5A09357 Assistance with Respiratory Ventilation, Less than 24 Consecutive Hours, Continuous Positive Airway Pressure (ICD-10-PCS; 2022-02-16)
PROC: 5A09357 Assistance with Respiratory Ventilation, Less than 24 Consecutive Hours, Continuous Positive Airway Pressure (ICD-10-PCS; 2022-02-16)
PROC: 05HY33Z Insertion of Infusion Device into Upper Vein, Percutaneous Approach (ICD-10-PCS; 2022-02-16)
PROC: 0JH606Z Insertion of Pacemaker, Dual Chamber into Chest Subcutaneous Tissue and Fascia, Open Approach (ICD-10-PCS; principal; 2022-02-17)
PROC: 02H63JZ Insertion of Pacemaker Lead into Right Atrium, Percutaneous Approach (ICD-10-PCS; 2022-02-17)
PROC: 02HK3JZ Insertion of Pacemaker Lead into Right Ventricle, Percutaneous Approach (ICD-10-PCS; 2022-02-17)
PROC: B517YZZ Fluoroscopy of Left Subclavian Vein using Other Contrast (ICD-10-PCS; 2022-02-17)
PROC: 5A09357 Assistance with Respiratory Ventilation, Less than 24 Consecutive Hours, Continuous Positive Airway Pressure (ICD-10-PCS; 2022-02-17)
PROC: 5A09357 Assistance with Respiratory Ventilation, Less than 24 Consecutive Hours, Continuous Positive Airway Pressure (ICD-10-PCS; 2022-02-18)
PROC: 5A09357 Assistance with Respiratory Ventilation, Less than 24 Consecutive Hours, Continuous Positive Airway Pressure (ICD-10-PCS; 2022-02-19)
PROC: 5A09357 Assistance with Respiratory Ventilation, Less than 24 Consecutive Hours, Continuous Positive Airway Pressure (ICD-10-PCS; 2022-02-20)
PROC: 5A09357 Assistance with Respiratory Ventilation, Less than 24 Consecutive Hours, Continuous Positive Airway Pressure (ICD-10-PCS; 2022-02-20)
PROC: 5A09357 Assistance with Respiratory Ventilation, Less than 24 Consecutive Hours, Continuous Positive Airway Pressure (ICD-10-PCS; 2022-02-22)
PROC: 5A09357 Assistance with Respiratory Ventilation, Less than 24 Consecutive Hours, Continuous Positive Airway Pressure (ICD-10-PCS; 2022-02-23)
PROC: 5A09357 Assistance with Respiratory Ventilation, Less than 24 Consecutive Hours, Continuous Positive Airway Pressure (ICD-10-PCS; 2022-02-24)
PROC: 5A09357 Assistance with Respiratory Ventilation, Less than 24 Consecutive Hours, Continuous Positive Airway Pressure (ICD-10-PCS; 2022-02-26)
DX: A41.9 Sepsis, unspecified organism (principal); J96.01 Acute respiratory failure with hypoxia; J96.02 Acute respiratory failure with hypercapnia; N17.0 Acute kidney failure with tubular necrosis; J44.1 Chronic obstructive pulmonary disease with (acute) exacerbation; I44.2 Atrioventricular block, complete; E87.29 Other acidosis; N39.0 Urinary tract infection, site not specified; Z68.42 Body mass index [BMI] 45.0-49.9, adult; J44.0 Chronic obstructive pulmonary disease with (acute) lower respiratory infection; E87.1 Hypo-osmolality and hyponatremia; I24.8 Other forms of acute ischemic heart disease; J81.1 Chronic pulmonary edema; J84.9 Interstitial pulmonary disease, unspecified; E66.2 Morbid (severe) obesity with alveolar hypoventilation; Z20.822 Contact with and (suspected) exposure to COVID-19; I10 Essential (primary) hypertension; E11.9 Type 2 diabetes mellitus without complications; E78.5 Hyperlipidemia, unspecified; I07.1 Rheumatic tricuspid insufficiency; I27.20 Pulmonary hypertension, unspecified; D50.9 Iron deficiency anemia, unspecified; R65.20 Severe sepsis without septic shock; M62.838 Other muscle spasm; T50.2X5A Adverse effect of carbonic-anhydrase inhibitors, benzothiadiazides and other diuretics, initial encounter; E78.00 Pure hypercholesterolemia, unspecified; E87.70 Fluid overload, unspecified; I49.5 Sick sinus syndrome; Z87.891 Personal history of nicotine dependence; Z82.49 Family history of ischemic heart disease and other diseases of the circulatory system; Z28.310 Unvaccinated for COVID-19; Z90.711 Acquired absence of uterus with remaining cervical stump; Z86.16 Personal history of COVID-19; Z79.84 Long term (current) use of oral hypoglycemic drugs; Z79.899 Other long term (current) drug therapy; Y92.89 Other specified places as the place of occurrence of the external cause
CPT/HCPCS: 33208; 36415; 36573; 36600; 71045; 71250; 74176; 75820; 76604; 76770; 80048; 80053; 80061; 80202; 80305; 81003; 82010; 82040; 82375; 82550; 82553; 82607; 82805; 82962; 83036; 83540; 83550; 83605; 83735; 83880; 83930; 84100; 84134; 84145; 84439; 84443; 84481; 84484; 85025; 85027; 85379; 87426; 93005; 93306; 93970; 94640; 94644; 94660; 94664; 97116; 97162; 97166; 97530; 99291; A4565; A6261; C1725; C1785; C1893; C1898; C9803; J0330; J0360; J0456; J0690; J0692; J0696; J1265; J1580; J1650; J1815; J1940; J2270; J2405; J2543; J2704; J2920; J2930; J3010; J3370; J3475; J3490; J7030; J7060; J7512; J7608; Q9967